=== PATIENT | female | born 1990 | race Caucasian/White ===

== ENCOUNTER 2021-05-25 03:06 | Emergency (ER) | payer BC ==
[~2021-05-25] VITALS: Ht 162.6 cm; Wt 79.4 kg
[~2021-05-25 03:06] MED LIST: BIRTH CONTROL IMPLAN; BIRTH CONTROL PILL; BIRTH CONTROL PILLS; DOXY100 PO; HYDACE5325 PO; MEDR10 PO; METR250 PO; ONDA8 PO; PROM25 PO; Percocet 5-3251 EACH PO; Verotin-Gr Cap1 EACH PO; Zofran4 MG PO
[2021-05-25] MEDS ORDERED: LEVSOD75 PO (03:18)
[2021-05-25] MEDS ORDERED: Robaxin750 MG PO (04:28)
[2021-05-25] MEDS ORDERED: IBUP400 PO (04:28)
[2021-05-25] MEDS ORDERED: ACET500 PO (04:28)
[2021-05-25] MEDS ORDERED: METO10 PO (04:54)
== END 2021-05-25 05:01 | disposition home or self-care (01) ==
LOC: ER 03:06
DX: S06.0X0A Concussion without loss of consciousness, initial encounter (principal); S16.1XXA Strain of muscle, fascia and tendon at neck level, initial encounter; Z79.899 Other long term (current) drug therapy; W17.89XA Other fall from one level to another, initial encounter
CPT/HCPCS: 70450; 72125; 96372; 99283-25; A9270; J1885

== ENCOUNTER → 2025-01-21 | Outpatient (CLI) | payer BC ==
[~2025-01-21] MED LIST changes: +ACET500 PO; +IBUP400 PO; +LEVSOD75 PO; +METO10 PO; +Robaxin750 MG PO
== END ==
LOC: LAB 17:27 → LAB SHORT 17:27
DX: N39.0 Urinary tract infection, site not specified (principal)
CPT/HCPCS: 87086

== ENCOUNTER → 2025-03-03 | Outpatient (CLI) | payer BC | LOC: LAB 10:23 → LAB SHORT 10:23 | DX: Z32.01 Encounter for pregnancy test, result positive (principal) | CPT/HCPCS: 84702 ==

== ENCOUNTER → 2025-03-19 | Outpatient (CLI) | payer BC ==
[~2025-03-19] MED LIST changes: +CEPH500 PO
== END ==
LOC: LAB SHORT 19:35 → LAB 19:35
DX: Z34.81 Encounter for supervision of other normal pregnancy, first trimester (principal)
CPT/HCPCS: 84702